=== PATIENT | male | born 1960 | race Caucasian/White ===

== ENCOUNTER 2017-02-24 22:38 | Emergency (ER) | payer OTHER ==
[~2017-02-24] VITALS: Ht 172.7 cm; Wt 104.6 kg
[~2017-02-24 22:38] MED LIST: BUPR300T43 PO; FLUO10CA48 PO
[2017-02-24 22:40] VITALS: TEMP 36.5; Ht 172.7 cm; Wt 104.6 kg
[2017-02-24 22:50] VITALS: O2SAT 95
[2017-02-24] MEDS ORDERED: SODIUM CHLORIDE 0.9% 500ML 500 ML IV STA (23:15)
[2017-02-24] MEDS ORDERED: KETOROLAC TROMETHAMINE 30 MG/ML VIAL IV STA (23:15)
[2017-02-24 23:30] LABS: COMPLETE YES; EOS % 1.3 %; HEMATOCRIT 44.4 % (42-52); IG% 0.1 %; LYMPH % 39.1 %; LYMPH ABS # 2.65 K/uL (1.2-3.4); MEAN CELL VOLUME 90.8 fL (80-100); MEAN CORPUSCULAR HEMOGLOBIN 31.1 pg (25-34); MEAN CORPUSCULAR HGB CONC 34.2 g/dl (32-36); MEAN PLATELET VOLUME 10.1 fL (7.4-10.4); MONO % 8.4 %; NEUT % 51.1 %; PLATELET COUNT 246 K/uL (130-400); RED BLOOD COUNT 4.89 M/uL (4.7-6.1); WHITE BLOOD COUNT 6.77 K/uL (4.8-10.8)
[2017-02-24 23:39] LABS: ALT/SGPT 39 U/L (12-78); AST/SGOT 22 U/L (15-37); BLOOD UREA NITROGEN 22 mg/dl (7-18); BUN/CREATININE RATIO 19.6 (10-20); CALCIUM 9.3 mg/dl (8.5-10.1); CARBON DIOXIDE 28 mmol/L (21-32); CHLORIDE 107 mmol/L (98-107); GLUCOSE 100 mg/dl (70-99); POTASSIUM 3.9 mmol/L (3.5-5.1); SODIUM 144 mmol/L (136-145)
[2017-02-24 23:45] LABS: ALKALINE PHOSPHATASE 83 U/L (45-117); CKMB/CK RATIO 1.6 (0-3.0)
[2017-02-25 00:06] VITALS: BP 129/83; PULSE 69; O2SAT 96
--- NOTE | 2017-02-25 00:20 | EMERGENCY ROOM VISIT NOTE ---
History Report prepared by Nayla: Agnes Arvizu Under the Supervision of: Dr. Tyshawn Gutierrez M.D. First contact with patient: 23:01 Chief Complaint: CHEST PAIN Stated Complaint: CHEST PAIN,DIZZY,SWEATY History of Present Illness The patient is a 56 year old male who presents to the Emergency Room with complaints of worsening severe chest pain starting roughly 20 hours ago. The patient notes that the pain was mild and not severe yesterday morning while golfing. He states that he woke up from his sleep with the pain. The patient states that the pain is worse when he breathes, when he bends over, when he hiccups, when he sneezes, and when he lays flat. He reports that the pain is at its worst when he takes a deep breath. The patient notes that he has had this pain twice before and each time, he was found to have nothing. He states that his last stress test was four years ago. The patient denies being diabetic, having a history of heart issues, smoking, and having a cholecystectomy. The patient complains of dizziness and sweating. The patient denies abdominal pain and a cough. Source of History: patient Onset: 20 hours ago Position: chest Symptom Intensity: severe Timing: worsening Modifying Factors (Worsening): rest (laying flat), breathing, other ( bending over, hiccuping, sneezing) Associated Symptoms: + diaphoresis, No cough, No abdominal pain Note: The patient complains of dizziness. Review of Systems See HPI for pertinent positives & negatives. A total of 10 systems reviewed and were otherwise negative. Past Medical & Surgical Medical Problems: (1) Meningitis (2) Sciatica Surgical Problems: (1) S/P appendectomy Family History Cancer Diabetes mellitus Heart disease Hypertension Lung disease Social History Smoking Status: Never Smoker Alcohol Use: none Drug Use: none Marital Status: Housing Status: lives with family Occupation Status: employed Current/Historical Medications Scheduled Bupropion Hcl (Bupropion Hcl Xl), 300 MG PO DAILY Allergies Coded Allergies: Oxycodone (Verified Allergy, Unknown, "hyper", 02/24/17) Physical Exam Vital Signs Date Time Temp Pulse Resp B/P (MAP) Pulse Ox O2 Delivery O2 Flow Rate FiO2 02/25/17 00:06 69 20 129/83 96 Room Air 02/24/17 23:38 60 20 97 02/24/17 23:37 132/79 02/24/17 23:27 97 Room Air 02/24/17 23:23 70 17 98 02/24/17 23:08 71 25 97 02/24/17 22:55 131/88 02/24/17 22:53 72 02/24/17 22:53 72 25 02/24/17 22:50 95 Room Air 02/24/17 22:40 36.5 78 20 158/96 96 Room Air Physical Exam GENERAL: Patient is a healthy-appearing well-nourished HEAD: Normocephalic atraumatic EYES: Ocular movements intact pupils equal and react to light OROPHARYNX mucous membranes are moist no exudates present no erythema or edema present NECK: Supple no nuchal rigidity CHEST: Good equal expansion LUNGS: Clear and equal to auscultation CARDIAC: Normal S1 and S2 ABDOMEN: Soft nontender no guarding BACK: No CVA tenderness EXTREMITIES: No pain upon palpation normal muscle strength in all groups no clubbing cyanosis or edema NEURO: Patient is following commands and answering questions appropriately. Alert and oriented x3 Cranial Nerves 2-12 grossly intact Medical Decision & Procedures ER Provider Diagnostic Interpretation: Radiology results as stated below per my review: Chest X-Ray: The x-ray was interpreted by me and shows no evidence of pneumonia, congestion, or pneumothorax. Laboratory Results 02/24/17 22:55 Red Blood Count 4.89, Mean Corpuscular Volume 90.8, Mean Corpuscular Hemoglobin 31.1, Mean Corpuscular Hemoglobin Concent 34.2, Mean Platelet Volume 10.1, Neutrophils (%) (Auto) 51.1, Lymphocytes (%) (Auto) 39.1, Monocytes (%) (Auto) 8.4, Eosinophils (%) (Auto) 1.3, Basophils (%) (Auto) 0.0, Neutrophils # (Auto) 3.45, Lymphocytes # (Auto) 2.65, Monocytes # (Auto) 0.57, Eosinophils # (Auto) 0.09, Basophils # (Auto) 0.00 02/24/17 22:55 Test 02/24/17 22:55 02/24/17 23:24 White Blood Count 6.77 K/uL (4.8-10.8) Red Blood Count 4.89 M/uL (4.7-6.1) Hemoglobin 15.2 g/dL (14.0-18.0) Hematocrit 44.4 % (42-52) Mean Corpuscular Volume 90.8 fL (80-100) Mean Corpuscular Hemoglobin 31.1 pg (25-34) Mean Corpuscular Hemoglobin Concent 34.2 g/dl (32-36) Platelet Count 246 K/uL (130-400) Mean Platelet Volume 10.1 fL (7.4-10.4) Neutrophils (%) (Auto) 51.1 % Lymphocytes (%) (Auto) 39.1 % Monocytes (%) (Auto) 8.4 % Eosinophils (%) (Auto) 1.3 % Basophils (%) (Auto) 0.0 % Neutrophils # (Auto) 3.45 K/uL (1.4-6.5) Lymphocytes # (Auto) 2.65 K/uL (1.2-3.4) Monocytes # (Auto) 0.57 K/uL (0.11-0.59) Eosinophils # (Auto) 0.09 K/uL (0-0.5) Basophils # (Auto) 0.00 K/uL (0-0.2) RDW Standard Deviation 43.7 fL (36.4-46.3) RDW Coefficient of Variation 13.2 % (11.5-14.5) Immature Granulocyte % (Auto) 0.1 % Immature Granulocyte # (Auto) 0.01 K/uL (0.00-0.02) Anion Gap 9.0 mmol/L (3-11) Est Creatinine Clear Calc Drug Dose 86.8 ml/min Estimated GFR () 85.9 Estimated GFR (Non- 74.1 BUN/Creatinine Ratio 19.6 (10-20) Calcium Level 9.3 mg/dl (8.5-10.1) Total Bilirubin 0.2 mg/dl (0.2-1) Direct Bilirubin < 0.1 mg/dl (0-0.2) Aspartate Amino Transf (AST/SGOT) 22 U/L (15-37) Alanine Aminotransferase (ALT/SGPT) 39 U/L (12-78) Alkaline Phosphatase 83 U/L (45-117) Total Creatine Kinase 192 U/L (39-308) Creatine Kinase MB 3.1 ng/ml (0.5-3.6) Creatine Kinase MB Ratio 1.6 (0-3.0) Troponin I < 0.015 ng/ml (0-0.045) Total Protein 7.7 gm/dl (6.4-8.2) Albumin 3.7 gm/dl (3.4-5.0) Lipase 217 U/L (73-393) Bedside D-Dimer 203 ng/mlFEU (0-450) Labs reviewed by ED physician. Medications Administered Medications (Trade) Dose Ordered Sig/Itzel Route Start Time Stop Time Status Last Admin Dose Admin Ketorolac Tromethamine (Toradol Inj) 30 mg NOW STAT IV 02/24/17 23:15 02/24/17 23:16 DC 02/24/17 23:36 30 MG Sodium Chloride 500 ml @ 999 mls/hr Q31M STAT IV 02/24/17 23:15 02/24/17 23:45 DC 02/24/17 23:36 999 MLS/HR ECG Indication: chest pain Rate (beats per minute): 69 Rhythm: normal sinus Findings: no acute ischemic change, no ectopy ED Course 2303: Past medical records reviewed. The patient was evaluated in room B9. A complete history and physical examination was performed. 2315: Ordered NSS 500 ml @ 999 mls/hr IV, Toradol Inj 30 mg IV. 2350: Upon reexamination the patient is resting comfortably. I discussed results and treatment plan with the patient. He verbalizes agreement and understanding. The patient is ready for discharge. Medical Decision Medication Reconciliation: I attest that I have personally reviewed the patient' s current medication list Blood Pressure Screening: Patient was found to have an elevated blood pressure and was referred to their primary care doctor for recheck and further treatment Differential diagnosis: Etiologies such as cardiac ischemia, aortic dissection, pulmonary embolism, pneumonia, pneumothorax, musculoskeletal, infections, pericarditis, myocarditis , esophageal rupture, gastrointestinal, as well as others were entertained. History: Slightly suspicious (0) Moderately suspicious (+1) Highly suspicious (+2) EKG: No ST depression but LBBB, LVH, repolarization changes +1 (0) Significant ST depression +2 Age: <45 (0) 45-65 (+1) >65 (+2) Risk factors HTN, hypercholesterolemia, DM, obesity (BMI >30 kg/m), smoking, Positive family hx; atherosclerotic disease: prior NH, PCI/CABG, CVA/TIA or peripheral artery disease 1-2 risk factors +1 >3 risk factors: +2 Initial Troponin: 1-2x normal limit:+1 (0) >2 normal limit =2 0-3: 0.9-1.7% risk of adverse cardiac event. In the HEART Score, these patients were discharged. (0.99% retrospective) (1.7% prospective) Wells Criteria Clinical Signs and Symptoms of DVT +3 (0) PE Is #1 Diagnosis, or Equally Likely +3 (0) Heart Rate > 100 +1.5 (0) Immobilization at least 3 days, or Surgery in the Previous 4 weeks +1.5 (0) Previous, objectively diagnosed PE or DVT +1.5 (0) Hemoptysis +1 (0) Malignancy w/ Treatment within 6 mo, or palliative +1(0) Exogenous estrogen (0) This is a 56-year-old male who presents emergency department complaining of left -sided chest pain that is related to movement as well as taking a deep breath. The chest pain has been ongoing since the patient golfed yesterday morning and became more worse last evening when he was lying down. I do believe that this is muscle skeletal in nature as such the chest pain is been ongoing for least 24 hours and I would expect his troponin to be elevated if this were related to cardiac ischemia. He has no evidence of pneumonia congestion and pneumothorax on chest x-ray. The patient was given an incentive spirometer as well as Toradol in the emergency department for the pain. I recommended taking ibuprofen 600 mg every 6 hours at home for the pain and to follow-up with cardiology. He is low risk for PE based on Wells criteria with a negative ddimer , He also has a low HEART score. Patient was in agreement with the treatment plan. Impression Primary Impression: Chest wall pain Scribe Attestation The scribe's documentation has been prepared under my direction and personally reviewed by me in its entirety. I confirm that the note above accurately reflects all work, treatment, procedures, and medical decision making performed by me. Departure Information Dispostion Home / Self-Care Referrals Pretty Cardenas M.D. (PCP) Forms HOME CARE DOCUMENTATION FORM, IMPORTANT VISIT INFORMATION Patient Instructions My [facility] Additional Instructions Follow up with DR Zavala's office this week. You were found to have an elevated blood pressure today (>120 sytolic or >90 diastolic). Per medicare guidelines, you need to follow up with this blood pressure screening with your Primary Care Physician (PCP). For a new PCP call [phone]. Take 600 mg Ibuprofen every 6 hours You have been examined and treated today on an emergency basis only. This is not a substitute for, or an effort to provide, complete comprehensive medical care. It is impossible to recognize and treat all injuries or illnesses in a single emergency department visit. It is therefore important that you follow up closely with Dr Cardenas. Call as soon as possible for an appointment. Thank you for your time and consideration. I look forward to speaking with you again soon. Please don't hesitate to call us if you have any questions.
--- NOTE | 2017-02-25 07:26 | DIAGNOSTIC IMAGING REPORT ---
CHEST ONE VIEW PORTABLE CLINICAL HISTORY: 56 years-old Male presenting with CHEST PAIN. TECHNIQUE: Portable upright AP view of the chest was obtained. COMPARISON: 07/28/2015. FINDINGS: Cardiomediastinal silhouette normal. Mildly low lung volumes with hypoventilatory changes. Lungs and pleural spaces otherwise clear. Osseous structures and upper abdomen normal. IMPRESSION: 1. No acute cardiopulmonary disease. Electronically signed by: Moe Vaughan 02/25/2017 7:24 AM Dictated Date/Time: 02/25/2017 7:22 AM
== END 2017-02-25 00:13 | disposition home or self-care (01) ==
LOC: C.EDB 22:40
DX: R07.89 Other chest pain (principal); Z86.61 Personal history of infections of the central nervous system; M54.30 Sciatica, unspecified side; Z80.9 Family history of malignant neoplasm, unspecified; Z83.3 Family history of diabetes mellitus; Z82.49 Family history of ischemic heart disease and other diseases of the circulatory system; Z83.6 Family history of other diseases of the respiratory system; Z79.899 Other long term (current) drug therapy